=== PATIENT | female | born 1980 | race Caucasian/White ===

== ENCOUNTER 2017-03-17 19:46 | Emergency (ER) | payer SELFPAY ==
[2017-03-17 19:49] VITALS: BP 127/103
--- NOTE | 2017-03-17 23:23 | ED ---
Joshua Nova Alfonso, scribed for Lyle Boogie MD on 03/17/17 at 2039 . Substance Abuse/Use - HPI Summary HPI Summary: LEVEL 5 CAVEAT DUE TO ETOH INTOXICATION. This patient is a 36 year old F BIBA 2208 to [facility] [place] intoxication since earlier today. The patient reports both falling in her driveway, and subsequently falling in her bathroom. Symptoms alleviated by nothing. EMS reports the patient denied any pain or injury. She was able to walk to the ambulance without assistance, but was otherwise uncooperative. - History Of Current Complaint Chief Complaint: EDSubstanceAbuse Stated Complaint: 2208 Time Seen by Provider: 03/17/17 19:50 Hx Obtained From: EMS Hx From Patient Unobtainable Due To: Other - ETOH Intoxication Ingestion History: Type/Name Of Drug - ETOH Overdose Characteristics: Oral Timing Of Abuse: Binge Use Alleviating Factor(s): Nothing Associated Signs And Symptoms: Other: - falls - Allergies/Home Medications Allergies/Adverse Reactions: Allergies Allergy/AdvReac Type Severity Reaction Status Date / Time No Known Allergies Allergy Verified 03/17/17 19:47 PMH/Surg Hx/FS Hx/Imm Hx Sensory History: Denies: Hx Legally Blind EENT History: Denies: Hx Deafness Infectious Disease History: Unable to Obtain/Confirm Infectious Disease History: Denies: Traveled Outside the [place] in Last 30 Days - Family History Known Family History: Positive: Unknown - DUE TO LEVEL 5 CAVAET ETOH INTOXICATION - Social History Alcohol Use: Occasionally Alcohol Amount: unknown amounts Substance Use Type: Reports: None Smoking Status (MU): Unknown if Ever Smoked Review of Systems Negative: Fever Positive: Other - Falls; negative pain or injury Neurological: Other - ETOH intoxication Psychological: Other - Uncooperative All Other Systems Reviewed And Are Negative: No Physical Exam - Summary Physical Exam Summary: Appearance: Well-appearing, no pain distress Skin: Warm, dry, color reflects adequate perfusion Head/face: Nml head/face Eyes: Nml eyes Neck: Supple, non-tender Respiratory: CTA, breath sound present Cardiovascular: RRR Abdomen: Abd soft, non-tender Bowel: Bowel sounds present Musculoskeletal: No external sign of trauma, however she did not allow for a more thorough exam. Neurological: Nml neuro, sensory/motor intact, CN Intact II-III Psychiatric: Slurring words. ETOH intoxication. Triage Information Reviewed: Yes Vital Signs On Initial Exam: Initial Vitals Temp Pulse Resp BP Pulse Ox 97.6 F 89 16 127/103 96 03/17/17 19:47 03/17/17 19:47 03/17/17 19:47 03/17/17 19:47 03/17/17 19:47 Vital Signs Reviewed: Yes Completion Of Physical Exam Limited Due To: Level 5 - [place] Coma Scale Coma Scale Total: 15 Diagnostics - Vital Signs Vital Signs Temp Pulse Resp BP Pulse Ox 03/17/17 19:47 97.6 F 89 16 127/103 96 - Laboratory Lab Statement: Any lab studies that have been ordered have been reviewed, and results considered in the medical decision making process. Course/Dx - Course Course Of Treatment: Ms. Yanes fell in her home and somehow the police got involved and brought her in as a 2209. She was obviously intoxicated on arrival but not apparently injured. She slept for 3 hours and woke uup clinically sober and was able to get a sober ride home with her housemates who were willing to take care of her. - Diagnoses Provider Diagnoses: Alcohol intoxication Discharge - Discharge Plan Condition: Stable Disposition: HOME Patient Education Materials: Alcohol Intoxication (ED) Referrals: No Primary Care Phys,NOPCP [Primary Care Provider] - The documentation as recorded by the Joshua mallory Alfonso accurately reflects the service I personally performed and the decisions made by me, Lyle Boogie MD.
== END 2017-03-17 23:28 | disposition home or self-care (01) ==
LOC: ED 19:46
DX: F10.129 Alcohol abuse with intoxication, unspecified (principal)
CPT/HCPCS: 99283